=== PATIENT | male | born 1955 | race Two or more races ===

== ENCOUNTER 2017-06-14 23:56 | Emergency (ER) | payer MEDICARE ==
[~2017-06-14] VITALS: Ht 170.2 cm; Wt 73.0 kg
[~2017-06-14 23:56] MED LIST: ASPI-1159 PO; ATOR40TA70 PO; CLOP75TA33 PO; GABA-531 PO; METF500T4 PO; METO-539 PO
[2017-06-15] MEDS ORDERED: KETOROLAC 30MG/ML VIAL IM ONE (05:30)
[2017-06-15 08:01] VITALS: BP 169/98
== END 2017-06-15 08:04 | disposition home or self-care (01) ==
LOC: ER 23:56
DX: M75.32 Calcific tendinitis of left shoulder (principal); I10 Essential (primary) hypertension; E78.00 Pure hypercholesterolemia, unspecified; I25.2 Old myocardial infarction; H91.90 Unspecified hearing loss, unspecified ear; Z95.5 Presence of coronary angioplasty implant and graft; Z79.82 Long term (current) use of aspirin
CPT/HCPCS: 73030; 96372; 99284; J1885

== ENCOUNTER 2018-08-08 18:33 | Emergency (ER) | payer MEDICARE ==
[~2018-08-08] VITALS: Ht 170.2 cm; Wt 70.0 kg
[~2018-08-08 18:33] MED LIST changes: +METF-414 PO; -METF500T4 PO
[2018-08-08] MEDS ORDERED: ONDANSETRON 4MG ODT PO ONE (21:15)
[2018-08-08] MEDS ORDERED: HYDROCODONE/ACETAMINOPHEN 5/325MG TABLET PO ONE (21:15)
[2018-08-08] MEDS ORDERED: INSULIN REGULAR (HUMULIN R) 300UNITS/3ML SUBCUT ONE (23:00)
[2018-08-09] MEDS ORDERED: CLONIDINE 0.1MG TABLET PO ONE (00:15)
[2018-08-09] MEDS ORDERED: CEPHALEXIN 250MG CAPSULE PO ONE (00:15)
[2018-08-09] MEDS ORDERED: SULFAMETHOXAZOLE/TRIMETHOPRIM 400/80MG TAB PO ONE (00:15)
[2018-08-09 01:49] VITALS: BP 156/85
== END 2018-08-09 01:51 | disposition home or self-care (01) ==
LOC: ER 18:33
DX: E11.622 Type 2 diabetes mellitus with other skin ulcer (principal); L97.818 Non-pressure chronic ulcer of other part of right lower leg with other specified severity; E11.65 Type 2 diabetes mellitus with hyperglycemia; I10 Essential (primary) hypertension; E78.00 Pure hypercholesterolemia, unspecified; I25.2 Old myocardial infarction; Z90.49 Acquired absence of other specified parts of digestive tract; Z98.890 Other specified postprocedural states; Z79.82 Long term (current) use of aspirin; Z79.899 Other long term (current) drug therapy
CPT/HCPCS: 73590; 82962; 93971; 96372; 99284; J1815; Q0162

== ENCOUNTER 2022-06-02 16:40 | Inpatient (IN) | payer MEDICARE, MEDICAID ==
[~2022-06-02] VITALS: Ht 165.1 cm; Wt 74.8 kg
[~2022-06-02 16:40] MED LIST changes: -ASPI-1159 PO; +ASPI-1497 PO; +BRIM5DRO6 EACHEYE; +BROM3DRO EACHEYE; -GABA-531 PO; +GABA-532 PO
[2022-06-02 20:00] VITALS: BP 161/92
[2022-06-02] MEDS ORDERED: GUAIFENESIN 200MG/10ML SUGAR FREE UDC PO PRN (21:30)
[2022-06-02] MEDS ORDERED: NALOXONE HCL 0.4 MG/ML 1ML VIAL IV PRN (21:30)
[2022-06-02] MEDS ORDERED: ACETAMINOPHEN 325MG TABLET PO PRN ×2 (21:30)
[2022-06-02] MEDS ORDERED: ALBUTEROL (0.083%) 2.5MG/3ML NEB HHN PRN (21:30)
[2022-06-02] MEDS ORDERED: DEXTROSE 50% WATER 50ML SYRINGE IV PRN (21:30)
[2022-06-02] MEDS ORDERED: ONDANSETRON HCL 4MG/2ML INJ IV PRN (21:30)
[2022-06-02] MEDS ORDERED: IPRATROPIUM BROMIDE (0.02%) 0.5MG/2.5ML NEB HHN PRN (21:30)
[2022-06-02] MEDS ORDERED: MAGNESIUM/ALUMINUM HYDROXIDE/SIMETHICONE 30ML UDC PO PRN (21:30)
[2022-06-02] MEDS ORDERED: DOCUSATE SODIUM 100MG CAPSULE PO PRN (21:30)
[2022-06-02] MEDS ORDERED: HYDROCODONE/ACETAMINOPHEN 5/325MG TABLET PO PRN (21:30)
[2022-06-02] MEDS: SODIUM CHLORIDE 0.9% 1,000 ML IV SCH (22:30)
[2022-06-02] MEDS: INSULIN LISPRO 100 UNITS/ML SUBCUT SCH (23:49)
[2022-06-03 02:43] VITALS: BP 161/92
[2022-06-03 07:04] LABS: CHLORIDE 103 mEq/L (98-107)
[2022-06-03 07:08] LABS: BASOPHILS % 0.6 % (0.0-2.0); EOSINOPHILS % 1.2 % (0.0-5.0); HEMATOCRIT. 37.4 % (42.0-52.0); HEMOGLOBIN. 13.2 g/dL (14.0-18.0); LYMPHOCYTES % 27.1 % (20.0-50.0); MEAN CORPUSCULAR HEMOGLOBIN 29.2 pg (28.0-32.0); MEAN CORPUSCULAR VOLUME 82.9 fL (80.0-94.0); MONOCYTES % 7.6 % (2.0-8.0); NEUTROPHILS % 63.5 % (40.0-76.0); PLATELET 229 x1000/uL (130-400); RED BLOOD CELL COUNT 4.51 mill/uL (4.7-6.1)
[2022-06-03] MEDS: BLOOD SUGAR DIAGNOSTIC STRIP TEST SCH ×4 (07:20→20:40)
[2022-06-03 08:00] VITALS: BP 161/87
[2022-06-03] MEDS: BROMFENAC OP SCH (09:00)
[2022-06-03] MEDS: INSULIN LISPRO 100 UNITS/ML SUBCUT SCH ×4 (09:00→21:12)
[2022-06-03] MEDS ORDERED: INSULIN LISPRO 100 UNITS/ML SUBCUT SCH (09:00)
[2022-06-03] MEDS: BRIMONIDINE 0.2% OP SCH (09:00)
[2022-06-03] MEDS: INSULIN GLARGINE 100 UNITS/ML SUBCUT SCH (10:00)
[2022-06-03] MEDS: CLOPIDOGREL 75MG TABLET PO SCH (10:02)
[2022-06-03] MEDS: ASPIRIN 81MG TABLET PO SCH (10:02)
[2022-06-03] MEDS: METOPROLOL TARTRATE 50MG TABLET PO SCH ×2 (10:03→20:37)
[2022-06-03] MEDS: LOSARTAN POTASSIUM 25 MG TABLET PO SCH (13:13)
[2022-06-03 19:43] VITALS: BP 155/89
[2022-06-03] MEDS: ATORVASTATIN CALCIUM 40MG TABLET PO SCH (20:37)
[2022-06-03] MEDS: SODIUM CHLORIDE 0.9% 1,000 ML IV SCH (22:09)
[2022-06-04] MEDS: SODIUM CHLORIDE 0.9% 1,000 ML IV SCH ×2 (02:55→13:30)
[2022-06-04] MEDS: BLOOD SUGAR DIAGNOSTIC STRIP TEST SCH ×4 (06:23→21:54)
[2022-06-04 08:00] VITALS: BP 172/96
[2022-06-04] MEDS: METOPROLOL TARTRATE 50MG TABLET PO SCH ×2 (08:44→21:55)
[2022-06-04] MEDS: CLONIDINE 0.1MG TABLET PO PRN (08:44)
[2022-06-04] MEDS: CLOPIDOGREL 75MG TABLET PO SCH (08:44)
[2022-06-04] MEDS: LOSARTAN POTASSIUM 25 MG TABLET PO SCH (08:44)
[2022-06-04] MEDS: ASPIRIN 81MG TABLET PO SCH (08:44)
[2022-06-04] MEDS: BRIMONIDINE 0.2% OP SCH (08:46)
[2022-06-04] MEDS: BROMFENAC OP SCH (08:46)
[2022-06-04] MEDS: INSULIN LISPRO 100 UNITS/ML SUBCUT SCH ×4 (08:47→22:03)
[2022-06-04 09:30] VITALS: BP 143/72
[2022-06-04] MEDS: INSULIN GLARGINE 100 UNITS/ML SUBCUT SCH (10:37)
[2022-06-04 13:41] VITALS: BP 145/91
[2022-06-04] MEDS: HYDRALAZINE HCL 50MG TABLET PO SCH ×2 (13:43→21:56)
[2022-06-04 20:00] VITALS: BP 161/91
[2022-06-04] MEDS: ATORVASTATIN CALCIUM 40MG TABLET PO SCH (21:55)
[2022-06-05] MEDS: HYDRALAZINE HCL 50MG TABLET PO SCH ×3 (05:22→21:28)
[2022-06-05] MEDS: BLOOD SUGAR DIAGNOSTIC STRIP TEST SCH ×4 (06:02→21:29)
[2022-06-05] MEDS: INSULIN LISPRO 100 UNITS/ML SUBCUT SCH ×4 (06:02→21:34)
[2022-06-05 08:00] VITALS: BP 148/77
[2022-06-05] MEDS: BRIMONIDINE 0.2% OP SCH (08:32)
[2022-06-05] MEDS: METOPROLOL TARTRATE 50MG TABLET PO SCH ×2 (08:32→21:28)
[2022-06-05] MEDS: LOSARTAN POTASSIUM 25 MG TABLET PO SCH (08:32)
[2022-06-05] MEDS: BROMFENAC OP SCH (08:32)
[2022-06-05] MEDS: ASPIRIN 81MG TABLET PO SCH (08:32)
[2022-06-05] MEDS: CLOPIDOGREL 75MG TABLET PO SCH (08:33)
[2022-06-05] MEDS: METFORMIN HCL 500MG TABLET PO SCH ×2 (09:30→18:30)
[2022-06-05] MEDS: INSULIN GLARGINE 100 UNITS/ML SUBCUT SCH (10:00)
[2022-06-05] MEDS: CLONIDINE 0.1MG TABLET PO PRN (11:40)
[2022-06-05 19:37] VITALS: BP 132/68
[2022-06-05] MEDS: ATORVASTATIN CALCIUM 40MG TABLET PO SCH (21:27)
[2022-06-06] MEDS: HYDRALAZINE HCL 50MG TABLET PO SCH ×3 (06:34→21:50)
[2022-06-06] MEDS: BLOOD SUGAR DIAGNOSTIC STRIP TEST SCH ×4 (06:49→21:36)
[2022-06-06] MEDS: INSULIN LISPRO 100 UNITS/ML SUBCUT SCH ×4 (07:42→21:00)
[2022-06-06 08:00] VITALS: BP 156/83
[2022-06-06] MEDS: BROMFENAC OP SCH (09:00)
[2022-06-06] MEDS: BRIMONIDINE 0.2% OP SCH (09:00)
[2022-06-06] MEDS: INSULIN GLARGINE 100 UNITS/ML SUBCUT SCH (10:00)
[2022-06-06] MEDS: ASPIRIN 81MG TABLET PO SCH (10:01)
[2022-06-06] MEDS: METFORMIN HCL 500MG TABLET PO SCH ×2 (10:02→17:31)
[2022-06-06] MEDS: METOPROLOL TARTRATE 50MG TABLET PO SCH ×2 (10:02→21:49)
[2022-06-06] MEDS: CLOPIDOGREL 75MG TABLET PO SCH (10:02)
[2022-06-06] MEDS: LOSARTAN POTASSIUM 25 MG TABLET PO SCH (10:02)
[2022-06-06 19:42] VITALS: BP 132/102
[2022-06-06] MEDS: ATORVASTATIN CALCIUM 40MG TABLET PO SCH (21:48)
[2022-06-07] MEDS: BLOOD SUGAR DIAGNOSTIC STRIP TEST SCH ×4 (06:05→21:00)
[2022-06-07] MEDS: HYDRALAZINE HCL 50MG TABLET PO SCH ×3 (06:06→20:59)
[2022-06-07] MEDS: INSULIN LISPRO 100 UNITS/ML SUBCUT SCH ×4 (06:31→22:07)
[2022-06-07 08:00] VITALS: BP 166/85
[2022-06-07] MEDS: ASPIRIN 81MG TABLET PO SCH (08:53)
[2022-06-07] MEDS: CLOPIDOGREL 75MG TABLET PO SCH (08:53)
[2022-06-07] MEDS: LOSARTAN POTASSIUM 25 MG TABLET PO SCH (08:54)
[2022-06-07] MEDS: METFORMIN HCL 500MG TABLET PO SCH ×2 (08:54→17:24)
[2022-06-07] MEDS: METOPROLOL TARTRATE 50MG TABLET PO SCH ×2 (08:58→20:59)
[2022-06-07] MEDS: BROMFENAC OP SCH (09:00)
[2022-06-07] MEDS: BRIMONIDINE 0.2% OP SCH (09:00)
[2022-06-07] MEDS: INSULIN GLARGINE 100 UNITS/ML SUBCUT SCH (10:00)
[2022-06-07 20:00] VITALS: BP 161/85
[2022-06-07] MEDS: ATORVASTATIN CALCIUM 40MG TABLET PO SCH (20:58)
[2022-06-08 06:09] VITALS: BP 158/86
[2022-06-08] MEDS: HYDRALAZINE HCL 50MG TABLET PO SCH ×3 (06:09→21:28)
[2022-06-08] MEDS: BLOOD SUGAR DIAGNOSTIC STRIP TEST SCH ×4 (06:30→21:00)
[2022-06-08 08:00] VITALS: BP 156/85
[2022-06-08] MEDS: METOPROLOL TARTRATE 50MG TABLET PO SCH ×2 (09:00→21:29)
[2022-06-08] MEDS: LOSARTAN POTASSIUM 25 MG TABLET PO SCH (09:02)
[2022-06-08] MEDS: BROMFENAC OP SCH (09:02)
[2022-06-08] MEDS: BRIMONIDINE 0.2% OP SCH (09:02)
[2022-06-08] MEDS: ASPIRIN 81MG TABLET PO SCH (09:02)
[2022-06-08] MEDS: METFORMIN HCL 500MG TABLET PO SCH ×2 (09:02→17:31)
[2022-06-08] MEDS: CLOPIDOGREL 75MG TABLET PO SCH (09:02)
[2022-06-08] MEDS: INSULIN GLARGINE 100 UNITS/ML SUBCUT SCH (09:03)
[2022-06-08] MEDS: INSULIN LISPRO 100 UNITS/ML SUBCUT SCH ×4 (09:04→21:00)
[2022-06-08] MEDS ORDERED: LOSARTAN POTASSIUM 25 MG TABLET PO SCH (11:15)
[2022-06-08 20:00] VITALS: BP 154/68
[2022-06-08] MEDS: ATORVASTATIN CALCIUM 40MG TABLET PO SCH (21:00)
[2022-06-09] MEDS: BLOOD SUGAR DIAGNOSTIC STRIP TEST SCH ×4 (06:30→21:00)
[2022-06-09] MEDS: HYDRALAZINE HCL 50MG TABLET PO SCH ×3 (07:00→22:25)
[2022-06-09] MEDS: INSULIN LISPRO 100 UNITS/ML SUBCUT SCH ×4 (07:03→22:33)
[2022-06-09 08:00] VITALS: BP 140/73
[2022-06-09] MEDS: METFORMIN HCL 500MG TABLET PO SCH ×2 (08:37→17:42)
[2022-06-09] MEDS: ASPIRIN 81MG TABLET PO SCH (08:37)
[2022-06-09] MEDS: CLOPIDOGREL 75MG TABLET PO SCH (08:37)
[2022-06-09] MEDS: BRIMONIDINE 0.2% OP SCH (08:38)
[2022-06-09] MEDS: BROMFENAC OP SCH (08:38)
[2022-06-09] MEDS: METOPROLOL TARTRATE 50MG TABLET PO SCH ×2 (08:38→22:25)
[2022-06-09] MEDS ORDERED: LOSARTAN POTASSIUM 25 MG TABLET PO SCH (09:00)
[2022-06-09] MEDS: INSULIN GLARGINE 100 UNITS/ML SUBCUT SCH (10:00)
[2022-06-09] MEDS ORDERED: LOSARTAN POTASSIUM 50 MG TABLET PO SCH (15:16)
[2022-06-09 19:42] VITALS: BP 163/102
[2022-06-09] MEDS: ATORVASTATIN CALCIUM 40MG TABLET PO SCH (22:24)
[2022-06-10] MEDS: HYDRALAZINE HCL 50MG TABLET PO SCH ×3 (06:00→21:35)
[2022-06-10] MEDS: BLOOD SUGAR DIAGNOSTIC STRIP TEST SCH ×4 (07:13→21:00)
[2022-06-10] MEDS: INSULIN LISPRO 100 UNITS/ML SUBCUT SCH ×4 (07:14→21:00)
[2022-06-10 08:00] VITALS: BP 145/77
[2022-06-10] MEDS: BROMFENAC OP SCH (09:00)
[2022-06-10] MEDS: BRIMONIDINE 0.2% OP SCH (09:00)
[2022-06-10] MEDS: CLOPIDOGREL 75MG TABLET PO SCH (09:02)
[2022-06-10] MEDS: ASPIRIN 81MG TABLET PO SCH (09:02)
[2022-06-10] MEDS: LOSARTAN POTASSIUM 100 MG TABLET PO SCH (09:03)
[2022-06-10] MEDS: METFORMIN HCL 500MG TABLET PO SCH ×2 (09:03→17:10)
[2022-06-10] MEDS: METOPROLOL TARTRATE 50MG TABLET PO SCH ×2 (09:03→21:35)
[2022-06-10] MEDS: INSULIN GLARGINE 100 UNITS/ML SUBCUT SCH (10:00)
[2022-06-10] MEDS ORDERED: HYDR-4135 PO (14:32)
[2022-06-10] MEDS ORDERED: GLIM2TAB30 PO (14:32)
[2022-06-10] MEDS ORDERED: LOSA100T3 PO (14:32)
[2022-06-10 20:00] VITALS: BP 147/81
[2022-06-10] MEDS: ATORVASTATIN CALCIUM 40MG TABLET PO SCH (21:35)
[2022-06-11] MEDS: BLOOD SUGAR DIAGNOSTIC STRIP TEST SCH (06:30)
[2022-06-11] MEDS: INSULIN LISPRO 100 UNITS/ML SUBCUT SCH (06:44)
[2022-06-11] MEDS: CLONIDINE 0.1MG TABLET PO PRN (06:46)
[2022-06-11] MEDS: HYDRALAZINE HCL 50MG TABLET PO SCH (06:46)
[2022-06-11] MEDS ORDERED: GLIMEPIRIDE 2MG TABLET PO SCH (07:00)
[2022-06-11 08:00] VITALS: BP 113/64
[2022-06-11] MEDS: BROMFENAC OP SCH (08:13)
[2022-06-11] MEDS: CLOPIDOGREL 75MG TABLET PO SCH (08:13)
[2022-06-11] MEDS: ASPIRIN 81MG TABLET PO SCH (08:13)
[2022-06-11] MEDS: LOSARTAN POTASSIUM 100 MG TABLET PO SCH (08:13)
[2022-06-11] MEDS: BRIMONIDINE 0.2% OP SCH (08:13)
[2022-06-11] MEDS: METFORMIN HCL 500MG TABLET PO SCH (08:13)
[2022-06-11] MEDS: METOPROLOL TARTRATE 50MG TABLET PO SCH (08:14)
[2022-06-11 08:47] VITALS: BP 113/64
== END 2022-06-11 10:35 | disposition home health service (06) | DRG 65 ==
LOC: UNDOADMIN 16:40
PROVIDERS: ADMIT Psychiatry & Neurology Neurology; ATTEND Internal Medicine
DX: I63.9 Cerebral infarction, unspecified (principal); G93.40 Encephalopathy, unspecified; I16.9 Hypertensive crisis, unspecified; I25.10 Atherosclerotic heart disease of native coronary artery without angina pectoris; I10 Essential (primary) hypertension; F39 Unspecified mood [affective] disorder; E78.5 Hyperlipidemia, unspecified; E11.9 Type 2 diabetes mellitus without complications; I51.7 Cardiomegaly; R53.1 Weakness; Z79.82 Long term (current) use of aspirin; Z82.3 Family history of stroke; Z82.49 Family history of ischemic heart disease and other diseases of the circulatory system; Z79.02 Long term (current) use of antithrombotics/antiplatelets; Z79.4 Long term (current) use of insulin; Z83.3 Family history of diabetes mellitus; Z91.81 History of falling; Z79.84 Long term (current) use of oral hypoglycemic drugs; Z79.899 Other long term (current) drug therapy
CPT/HCPCS: 36415; 80053; 82962; 85025; 92523; 92610; 93970; 97110; 97112; 97116; 97162; 97166; 97530; 97535; J1815; J7030

== ENCOUNTER 2024-07-05 12:42 | Inpatient (IN) | payer MEDICARE, MEDICAID ==
[~2024-07-05] VITALS: Ht 170.2 cm; Wt 81.8 kg
[~2024-07-05 12:42] MED LIST changes: +GABA-1180 PO; -GABA-532 PO; +GLIM2TAB30 PO; +HYDR50TA39 PO; +LOSA-415 PO
[2024-07-05 12:48] VITALS: O2SAT 99
[2024-07-05] MEDS: SODIUM CHLORIDE 0.9% 1,000 ML IV ONE (13:30)
[2024-07-05 14:51] LABS: BASOPHILS % 0.5 % (0.0-2.0); EOSINOPHILS % 0.5 % (0.0-5.0); HEMATOCRIT. 37.2 % (42.0-52.0); HEMOGLOBIN. 12.9 g/dL (14.0-18.0); LYMPHOCYTES % 13.6 % (20.0-50.0); MEAN CORPUSCULAR HEMOGLOBIN 29.6 pg (28.0-32.0); MEAN CORPUSCULAR HGB CONC 34.7 g/dL (31.0-37.0); MEAN CORPUSCULAR VOLUME 85.3 fL (80.0-94.0); MEAN PLATELET VOLUME 7.8 fl (7.4-10.4); MONOCYTES % 4.3 % (2.0-8.0); NEUTROPHILS % 81.1 % (40.0-76.0); PLATELET 298 x1000/uL (130-400); RED BLOOD CELL COUNT 4.36 mill/uL (4.7-6.1); RED CELL DISTRIBUTION WIDTH 13.3 % (11.6-14.6)
[2024-07-05 14:57] LABS: CHLORIDE 104 mEq/L (98-107); POTASSIUM 3.6 mEq/L (3.5-5.1); SODIUM 143 mEq/L (136-145)
[2024-07-05 14:58] LABS: CALCIUM 8.9 mg/dL (8.7-10.4); CARBON DIOXIDE 27 mEq/L (21-32)
[2024-07-05 15:03] LABS: CREATININE 0.7 mg/dL (0.6-1.3); GLUCOSE 191 mg/dL (70-105); UREA NITROGEN BLOOD 10 mg/dL (9-23)
[2024-07-05 15:04] LABS: TROPONIN I HIGH SENSITIVITY 11 ng/L (3.0-53)
[2024-07-05] MEDS: HYDRALAZINE 20MG/ML VIAL IV STA (15:31)
[2024-07-05] MEDS: ONDANSETRON HCL 4MG/2ML INJ IV STA (15:36)
[2024-07-05] MEDS: ACETAMINOPHEN 325MG TABLET PO STA (15:36)
[2024-07-05 17:03] LABS: TROPONIN I HIGH SENSITIVITY 9 ng/L (3.0-53)
[2024-07-05 18:00] VITALS: BP 131/26; PULSE 105; RESP 18; TEMP 36.2; O2SAT 96
[2024-07-05] MEDS ORDERED: MAGNESIUM/ALUMINUM HYDROXIDE/SIMETHICONE 30ML UDC PO PRN (19:15)
[2024-07-05] MEDS ORDERED: IPRATROPIUM/ALBUTEROL 0.5-3(2.5)MG/3ML NEB NEB PRN (19:15)
[2024-07-05] MEDS: SODIUM CHLORIDE 0.9% 1,000 ML IV SCH (19:15)
[2024-07-05] MEDS ORDERED: HYDROCODONE/ACETAMINOPHEN 5/325MG TABLET PO PRN (19:15)
[2024-07-05] MEDS ORDERED: ZOLPIDEM TARTRATE 5MG TABLET PO PRN (19:15)
[2024-07-05] MEDS ORDERED: ONDANSETRON HCL 4MG/2ML INJ IV PRN (19:15)
[2024-07-05] MEDS ORDERED: DEXTROSE 50% WATER 50ML SYRINGE IV PRN (19:15)
[2024-07-05] MEDS ORDERED: NALOXONE HCL 0.4MG/ML VIAL IV PRN (19:30)
[2024-07-05 20:00] VITALS: BP_SYST 125; BP_DIAS 75; BP_DIAS 78; PULSE 75; PULSE 76; RESP 17; RESP 18; TEMP 36.9; TEMP 37; O2SAT 98
[2024-07-05] MEDS: BLOOD SUGAR DIAGNOSTIC STRIP TEST SCH (21:00)
[2024-07-05] MEDS: INSULIN LISPRO 100 UNITS/ML SUBCUT SCH (21:00)
[2024-07-05] MEDS: ENOXAPARIN 40MG/0.4ML SYR SUBCUT SCH (21:15)
[2024-07-05 23:51] LABS: BG BASE EXCESS 2.7 mmol/L (-2.0-3.0); BG CARBOXYHEMOGLOBIN 0.4 % (0.5-1.5); BG DEOXYHEMOGLOBIN 4.4 % (0.0-5.0); BG FRACTION INSPIRED OXYGEN 21; BG HCO3 ACT 26.9 mmol/L (21.0-28.0); BG METHEMOGLOBIN 0.3 % (0.5-1.5); BG OXYGEN SATURATION 95.6 % (94.0-98.0); BG OXYHEMOGLOBIN 94.9 % (94.0-98.0); BG PCO2 39.9 mmHg (35.0-48.0); BG PH 7.446 (7.350-7.450); BG PO2 75.5 mmHg (83.0-108.0); BG SAMPLE SITE LEFT RADIAL; BG TOTAL HEMOGLOBIN 13.5 g/dL (13.5-17.5); BG VENT MODE ROOM AIR
[2024-07-06] VITALS (7 sets, daily range): BP systolic 115–191; BP diastolic 59–99; PULSE 73–129; RESP 16–18; TEMP 36.3–36.9; O2SAT 95–99
[2024-07-06 01:20] LABS: AMMONIA < 17 uMol/L (<32)
[2024-07-06 01:28] LABS: TROPONIN I HIGH SENSITIVITY 70 ng/L (3.0-53)
[2024-07-06 07:38] LABS: BASOPHILS % 0.3 % (0.0-2.0); EOSINOPHILS % 0.1 % (0.0-5.0); HEMATOCRIT. 36.1 % (42.0-52.0); HEMOGLOBIN. 12.1 g/dL (14.0-18.0); LYMPHOCYTES % 14.8 % (20.0-50.0); MEAN CORPUSCULAR HEMOGLOBIN 28.4 pg (28.0-32.0); MEAN CORPUSCULAR HGB CONC 33.5 g/dL (31.0-37.0); MEAN CORPUSCULAR VOLUME 84.7 fL (80.0-94.0); MEAN PLATELET VOLUME 8.2 fl (7.4-10.4); MONOCYTES % 5.8 % (2.0-8.0); PLATELET 284 x1000/uL (130-400); RED BLOOD CELL COUNT 4.27 mill/uL (4.7-6.1); RED CELL DISTRIBUTION WIDTH 13.1 % (11.6-14.6); WHITE BLOOD COUNT 10.6 x1000/uL (4.5-11.0)
[2024-07-06 07:45] LABS: CARBON DIOXIDE 28 mEq/L (21-32); CHLORIDE 105 mEq/L (98-107); POTASSIUM 3.3 mEq/L (3.5-5.1); SODIUM 143 mEq/L (136-145)
[2024-07-06 07:47] LABS: CALCIUM 8.9 mg/dL (8.7-10.4)
[2024-07-06 07:51] LABS: CREATININE 0.7 mg/dL (0.6-1.3); GLUCOSE 162 mg/dL (70-105)
[2024-07-06 07:52] LABS: UREA NITROGEN BLOOD 10 mg/dL (9-23)
[2024-07-06] MEDS: ASPIRIN 81MG TABLET PO SCH (08:26)
[2024-07-06] MEDS: CLOPIDOGREL 75MG TABLET PO SCH (08:27)
[2024-07-06] MEDS: ATORVASTATIN CALCIUM 40MG TABLET PO SCH (09:06)
[2024-07-06] MEDS: PANTOPRAZOLE SODIUM 40 MG/VIAL IV SCH (09:11)
[2024-07-06 09:15] LABS: TROPONIN I HIGH SENSITIVITY 221 ng/L (3.0-53)
[2024-07-06] MEDS: CLONIDINE 0.1MG TABLET PO PRN (12:51)
[2024-07-06] MEDS: ISOSORBIDE MONONITRATE 60MG TABLET SR 24HR PO SCH (14:09)
[2024-07-06 16:58] LABS: BASOPHILS % 0.2 % (0.0-2.0); HEMOGLOBIN. 11.6 g/dL (14.0-18.0); LYMPHOCYTES % 9.9 % (20.0-50.0); MEAN CORPUSCULAR HEMOGLOBIN 28.3 pg (28.0-32.0); MEAN CORPUSCULAR HGB CONC 33.1 g/dL (31.0-37.0); MEAN CORPUSCULAR VOLUME 85.6 fL (80.0-94.0); MEAN PLATELET VOLUME 8.2 fl (7.4-10.4); MONOCYTES % 6.2 % (2.0-8.0); NEUTROPHILS % 83.7 % (40.0-76.0); PLATELET 270 x1000/uL (130-400); RED BLOOD CELL COUNT 4.09 mill/uL (4.7-6.1); WHITE BLOOD COUNT 10.8 x1000/uL (4.5-11.0)
[2024-07-06 17:05] LABS: CARBON DIOXIDE 26 mEq/L (21-32); CHLORIDE 102 mEq/L (98-107); POTASSIUM 3.5 mEq/L (3.5-5.1); PROTHROMBIN TIME 11.2 sec (9.6-11.0); SODIUM 137 mEq/L (136-145)
[2024-07-06 17:06] LABS: CALCIUM 8.5 mg/dL (8.7-10.4)
[2024-07-06 17:11] LABS: CREATININE 1.1 mg/dL (0.6-1.3); GLUCOSE 305 mg/dL (70-105); TRIGLYCERIDE 72 mg/dL (0-150); UREA NITROGEN BLOOD 13 mg/dL (9-23)
[2024-07-06 17:12] LABS: LDL CHOLESTEROL 61 mg/dL (5-100)
[2024-07-06 17:13] LABS: CHOLESTEROL 111 mg/dL (<200); HDL CHOLESTEROL 35 mg/dL (>55)
[2024-07-06 17:19] LABS: TROPONIN I HIGH SENSITIVITY 252 ng/L (3.0-53)
[2024-07-06] MEDS ORDERED: GABA-529 PO (21:53)
[2024-07-07] VITALS: BP 198/97; PULSE 99; RESP 17; TEMP 36.1; O2SAT 95
[2024-07-07 04:00] VITALS: BP 133/81; PULSE 83; RESP 18; TEMP 37.2; O2SAT 96
[2024-07-07 07:10] LABS: BASOPHILS % 0.4 % (0.0-2.0); EOSINOPHILS % 0.3 % (0.0-5.0); HEMATOCRIT. 34.5 % (42.0-52.0); HEMOGLOBIN. 12.1 g/dL (14.0-18.0); LYMPHOCYTES % 17.6 % (20.0-50.0); MEAN CORPUSCULAR HEMOGLOBIN 30.1 pg (28.0-32.0); MEAN CORPUSCULAR HGB CONC 35.1 g/dL (31.0-37.0); MEAN CORPUSCULAR VOLUME 85.6 fL (80.0-94.0); MEAN PLATELET VOLUME 8.1 fl (7.4-10.4); NEUTROPHILS % 74.7 % (40.0-76.0); PLATELET 275 x1000/uL (130-400); RED BLOOD CELL COUNT 4.03 mill/uL (4.7-6.1); RED CELL DISTRIBUTION WIDTH 13.1 % (11.6-14.6); WHITE BLOOD COUNT 10.7 x1000/uL (4.5-11.0)
[2024-07-07 07:11] LABS: CHLORIDE 103 mEq/L (98-107); POTASSIUM 3.4 mEq/L (3.5-5.1); SODIUM 141 mEq/L (136-145)
[2024-07-07 07:12] LABS: CARBON DIOXIDE 28 mEq/L (21-32)
[2024-07-07 07:13] LABS: CALCIUM 8.6 mg/dL (8.7-10.4)
[2024-07-07 07:17] LABS: CREATININE 0.8 mg/dL (0.6-1.3); GLUCOSE 231 mg/dL (70-105)
[2024-07-07 07:18] LABS: LDL CHOLESTEROL 57 mg/dL (5-100); TRIGLYCERIDE 78 mg/dL (0-150); UREA NITROGEN BLOOD 12 mg/dL (9-23)
[2024-07-07 07:20] LABS: CHOLESTEROL 110 mg/dL (<200); HDL CHOLESTEROL 34 mg/dL (>55)
[2024-07-07 08:00] VITALS: BP 150/82; PULSE 87; RESP 18; TEMP 36.4; O2SAT 97
[2024-07-07 12:00] VITALS: BP 134/76; PULSE 95; RESP 19; TEMP 36.7; O2SAT 96
[2024-07-07 20:00] VITALS: BP 138/78; PULSE 96; RESP 18; TEMP 37.2; O2SAT 99
[2024-07-08] VITALS: BP 154/98; PULSE 86; RESP 18; TEMP 36.5; O2SAT 98
[2024-07-08 04:00] VITALS: BP 172/97; PULSE 83; RESP 18; TEMP 36.1; O2SAT 99
[2024-07-08 07:29] LABS: CARBON DIOXIDE 28 mEq/L (21-32); CHLORIDE 101 mEq/L (98-107); POTASSIUM 3.3 mEq/L (3.5-5.1); SODIUM 139 mEq/L (136-145)
[2024-07-08 07:30] LABS: CALCIUM 8.4 mg/dL (8.7-10.4)
[2024-07-08 07:34] LABS: CREATININE 0.7 mg/dL (0.6-1.3)
[2024-07-08 07:35] LABS: GLUCOSE 215 mg/dL (70-105); UREA NITROGEN BLOOD 12 mg/dL (9-23)
[2024-07-08 07:36] LABS: BASOPHILS % 0.3 % (0.0-2.0); EOSINOPHILS % 0.8 % (0.0-5.0); HEMOGLOBIN. 12.5 g/dL (14.0-18.0); LYMPHOCYTES % 16.3 % (20.0-50.0); MEAN CORPUSCULAR HEMOGLOBIN 29.5 pg (28.0-32.0); MEAN CORPUSCULAR HGB CONC 34.8 g/dL (31.0-37.0); MEAN CORPUSCULAR VOLUME 84.8 fL (80.0-94.0); MEAN PLATELET VOLUME 8.2 fl (7.4-10.4); NEUTROPHILS % 75.6 % (40.0-76.0); PLATELET 281 x1000/uL (130-400); RED BLOOD CELL COUNT 4.25 mill/uL (4.7-6.1)
[2024-07-08 08:16] VITALS: BP 154/89; PULSE 90; RESP 18; TEMP 36.7; O2SAT 98
[2024-07-08 12:00] VITALS: BP 144/82; PULSE 83; RESP 18; TEMP 36.8; O2SAT 96
[2024-07-08 16:00] VITALS: BP 118/62; PULSE 92; RESP 18; TEMP 36.8; O2SAT 96
[2024-07-08 20:00] VITALS: BP 145/79; PULSE 92; RESP 20; TEMP 36.4; O2SAT 95
[2024-07-09] VITALS (7 sets, daily range): BP systolic 129–162; BP diastolic 77–88; PULSE 77–98; RESP 18–20; TEMP 36.3–36.6; O2SAT 94–100
[2024-07-10 08:00] VITALS: BP 151/87; PULSE 76; RESP 19; TEMP 36.1; O2SAT 95
[2024-07-10] MEDS: FAMOTIDINE 20MG/2ML VIAL IV SCH (09:31)
[2024-07-10 12:00] VITALS: BP 159/96; PULSE 83; RESP 18; TEMP 36.3; O2SAT 99
[2024-07-10] MEDS: GABAPENTIN 100MG CAPSULE PO SCH (13:48)
[2024-07-10 16:00] VITALS: BP 137/79; PULSE 80; RESP 18; TEMP 36; O2SAT 99
[2024-07-10 20:00] VITALS: BP 150/82; PULSE 89; RESP 19; TEMP 36.5; O2SAT 98
[2024-07-11] VITALS: BP 163/87; PULSE 85; RESP 19; TEMP 36.6; O2SAT 97
[2024-07-11 04:00] VITALS: BP 107/61; PULSE 83; RESP 18; TEMP 36.3; O2SAT 96
[2024-07-11 08:00] VITALS: BP 145/83; PULSE 79; RESP 19; TEMP 36.2; O2SAT 97
[2024-07-11 12:00] VITALS: BP 132/82; PULSE 88; RESP 16; TEMP 36.4; O2SAT 95
[2024-07-11 16:00] VITALS: BP 131/72; PULSE 88; RESP 15; TEMP 35.7; O2SAT 100
[2024-07-11 20:00] VITALS: BP 113/52; PULSE 76; RESP 18; TEMP 36.6; O2SAT 99
[2024-07-12] VITALS: BP 120/68; PULSE 76; RESP 18; TEMP 36.8; O2SAT 99
[2024-07-12 04:00] VITALS: BP 139/79; PULSE 74; RESP 17; TEMP 36.4; O2SAT 99
[2024-07-12 08:00] VITALS: BP 154/82; PULSE 80; RESP 19; TEMP 36; O2SAT 97
[2024-07-12] MEDS: IOHEXOL-350 100 ML BOTTLE ONE (10:38)
[2024-07-12 12:54] LABS: CHLORIDE 100 mEq/L (98-107); POTASSIUM 3.8 mEq/L (3.5-5.1); SODIUM 137 mEq/L (136-145)
[2024-07-12 12:55] VITALS: BP 135/87; PULSE 79; RESP 18; TEMP 36.3; O2SAT 100
[2024-07-12 12:55] LABS: CALCIUM 8.7 mg/dL (8.7-10.4); CARBON DIOXIDE 26 mEq/L (21-32)
[2024-07-12 13:00] LABS: CREATININE 0.7 mg/dL (0.6-1.3); GLUCOSE 277 mg/dL (70-105); UREA NITROGEN BLOOD 19 mg/dL (9-23)
[2024-07-12 13:08] LABS: BASOPHILS % 0.4 % (0.0-2.0); EOSINOPHILS % 0.6 % (0.0-5.0); HEMOGLOBIN. 13.1 g/dL (14.0-18.0); MEAN CORPUSCULAR HEMOGLOBIN 29.4 pg (28.0-32.0); MEAN CORPUSCULAR HGB CONC 34.6 g/dL (31.0-37.0); MEAN CORPUSCULAR VOLUME 85.1 fL (80.0-94.0); PLATELET 314 x1000/uL (130-400); RED BLOOD CELL COUNT 4.46 mill/uL (4.7-6.1); WHITE BLOOD COUNT 8.9 x1000/uL (4.5-11.0)
[2024-07-12] MEDS ORDERED: ISOS60TA76 PO (14:34)
[2024-07-12 16:00] VITALS: BP 125/73; PULSE 84; RESP 19; TEMP 36.3; O2SAT 95
== END 2024-07-12 17:50 | DRG 64 ==
LOC: ER 12:42 → 6WST 16:31 → EDBEDREQ 16:39 → EDBEDREQTM 16:39
PROVIDERS: ADMIT Internal Medicine; ATTEND Internal Medicine
DX: I63.9 Cerebral infarction, unspecified (principal); I21.A1 Myocardial infarction type 2; G81.91 Hemiplegia, unspecified affecting right dominant side; G93.40 Encephalopathy, unspecified; R47.01 Aphasia; G93.89 Other specified disorders of brain; D64.9 Anemia, unspecified; E11.9 Type 2 diabetes mellitus without complications; I10 Essential (primary) hypertension; I25.10 Atherosclerotic heart disease of native coronary artery without angina pectoris; I16.0 Hypertensive urgency; I65.23 Occlusion and stenosis of bilateral carotid arteries; Z90.49 Acquired absence of other specified parts of digestive tract; Z95.5 Presence of coronary angioplasty implant and graft; Z86.73 Personal history of transient ischemic attack (TIA), and cerebral infarction without residual deficits; D72.829 Elevated white blood cell count, unspecified; Z82.49 Family history of ischemic heart disease and other diseases of the circulatory system
CPT/HCPCS: 36415; 36600; 70496; 70498; 70551; 80048; 80061; 82140; 82375; 82805; 82962; 83036; 84145; 84484; 85025; 92523; 92610; 93005; 93306; 93880; 97162; 97166; 97530; 97535; 99285; A4606; J0360; J1650; J1815; J2405; J2470; J3490; J7030; Q9967